=== PATIENT | female | born 1965 | race Caucasian/White ===

== ENCOUNTER → 2017-02-03 | Outpatient (CLI) | payer OTHER ==
[~2017-02-03] MED LIST: ALLEGRA ALLERGY60 MG PO; ASPIRIN325 MG PO; DOXEPIN HCL50 MG PO; ELMIRON100 MG PO; FISH OIL 1,0001 EACH PO; FUROSEMIDE20 MG PO; HYDROXYZINE HCL25 MG PO; KLONOPIN TAB 00.5 MG PO; LISINOPRIL20 MG PO; LYRICA150 MG PO; NEURONTIN 400400 MG PO; NORCO 5-325 TA1 EACH PO; PHENERGAN 25 MG25 M1 PO; PROTONIX40 MG PO; PROZAC 20 MG CA20 MG PO; VALIUM5 MG PO; ZOCOR10 MG PO
== END ==
LOC: KOH-I 14:34
DX: I73.9 Peripheral vascular disease, unspecified (principal)
CPT/HCPCS: 93925

== ENCOUNTER 2017-02-27 14:04 | Emergency (ER) | payer OTHER ==
[~2017-02-27 14:04] MED LIST changes: -ASPIRIN325 MG PO; -ELMIRON100 MG PO; -FISH OIL 1,0001 EACH PO; -FUROSEMIDE20 MG PO; -PHENERGAN 25 MG25 M1 PO; -VALIUM5 MG PO; -ZOCOR10 MG PO
[2017-04-03] MEDS ORDERED: ASPIRIN325 MG PO (07:39)
[2017-04-03] MEDS ORDERED: ELMIRON100 MG PO (07:39)
[2017-04-03] MEDS ORDERED: FUROSEMIDE20 MG PO (07:40)
[2017-04-03] MEDS ORDERED: FISH OIL 1,0001 EACH PO (07:40)
[2017-04-03] MEDS ORDERED: ZOCOR10 MG PO (07:41)
[2017-04-03] MEDS ORDERED: PHENERGAN 25 MG25 M1 PO (07:48)
[2017-04-03] MEDS ORDERED: VALIUM5 MG PO (07:49)
== END 2017-02-27 19:15 | disposition home or self-care (01) ==
LOC: ER1 14:04
DX: S16.1XXA Strain of muscle, fascia and tendon at neck level, initial encounter (principal); I10 Essential (primary) hypertension; V49.9XXA Car occupant (driver) (passenger) injured in unspecified traffic accident, initial encounter
CPT/HCPCS: 70450; 71020; 72125; 73030; 99284

== ENCOUNTER → 2017-03-30 | Outpatient (CLI) | payer OTHER ==
[~2017-03-30] MED LIST changes: +ASPIRIN325 MG PO; +ELMIRON100 MG PO; +FISH OIL 1,0001 EACH PO; +FUROSEMIDE20 MG PO; +PHENERGAN 25 MG25 M1 PO; +VALIUM5 MG PO; +ZOCOR10 MG PO
[2017-03-30 15:13] LABS: HEMOGLOBIN 13.3 gm/dl (12.3-15.3); RED BLOOD COUNT 4.85 M/UL (4.00-5.10)
[2017-03-30 15:34] LABS: BUN/CREATININE RATIO 18 (0-10)
== END ==
LOC: LAB 13:55
PROVIDERS: Internal Medicine
DX: Z01.812 Encounter for preprocedural laboratory examination (principal)
CPT/HCPCS: 36415; 80048; 85025; 85610; 85730

== ENCOUNTER → 2017-04-03 | Outpatient (CLI) | payer OTHER | END | disposition home or self-care (01) | LOC: CATH 07:02 | DX: M79.605 Pain in left leg (principal); M79.604 Pain in right leg; R93.8 Abnormal findings on diagnostic imaging of other specified body structures; E11.42 Type 2 diabetes mellitus with diabetic polyneuropathy; I10 Essential (primary) hypertension; E78.5 Hyperlipidemia, unspecified; E66.01 Morbid (severe) obesity due to excess calories; G47.30 Sleep apnea, unspecified; Z79.82 Long term (current) use of aspirin; Z79.899 Other long term (current) drug therapy; M19.90 Unspecified osteoarthritis, unspecified site; J01.90 Acute sinusitis, unspecified; D64.9 Anemia, unspecified; J45.909 Unspecified asthma, uncomplicated; N32.89 Other specified disorders of bladder; N30.10 Interstitial cystitis (chronic) without hematuria; F32.9 Major depressive disorder, single episode, unspecified; K21.9 Gastro-esophageal reflux disease without esophagitis; K58.9 Irritable bowel syndrome, unspecified; G43.909 Migraine, unspecified, not intractable, without status migrainosus; G25.81 Restless legs syndrome; Z68.44 Body mass index [BMI] 60.0-69.9, adult | CPT/HCPCS: 36200; 75630; C1769; J1644; J2250; J3010; J7030; Q9965 ==